=== PATIENT | male | born 1975 | race Caucasian/White ===

== ENCOUNTER 2017-09-18 20:57 | Emergency (ER) | payer OTHER ==
[~2017-09-18] VITALS: Ht 180.3 cm; Wt 88.6 kg
[2017-09-18 21:09] VITALS: BP 135/85
[2017-09-18] MEDS ORDERED: LIDOcaine 1.5% w/epinephrine 1:200,000 5ml ampul IJ ONE (22:00)
== END 2017-09-18 23:19 | disposition home or self-care (01) ==
LOC: ER 20:58
DX: S81.812A Laceration without foreign body, left lower leg, initial encounter (principal); W22.8XXA Striking against or struck by other objects, initial encounter; Y93.01 Activity, walking, marching and hiking; Y92.828 Other wilderness area as the place of occurrence of the external cause; Y99.8 Other external cause status
CPT/HCPCS: 12001; 73590; 99284; A6255; A6449; J3490

== ENCOUNTER 2017-10-07 09:09 | Emergency (ER) | payer OTHER ==
[~2017-10-07] VITALS: Ht 180.3 cm; Wt 90.0 kg
[2017-10-07 09:28] VITALS: BP 142/97
[2017-10-07] MEDS ORDERED: CEPH-572 PO (11:18)
== END 2017-10-07 11:33 | disposition home or self-care (01) ==
LOC: ER 09:10
DX: S81.812D Laceration without foreign body, left lower leg, subsequent encounter (principal); Z48.00 Encounter for change or removal of nonsurgical wound dressing; Z79.899 Other long term (current) drug therapy; W22.8XXD Striking against or struck by other objects, subsequent encounter
CPT/HCPCS: 73590; 99284; A6255; A6449